=== PATIENT | female | born 1950 ===

== ENCOUNTER 2016-09-05 12:29 | Observation (INO) | payer SELFPAY ==
[~2016-09-05] VITALS: Ht 165.1 cm; Wt 72.0 kg
[2016-09-05] VITALS (9 sets, daily range): BP systolic 106–144; BP diastolic 51–71
--- NOTE | 2016-09-05 15:34 | ED NURSING NOTES ---
Clinical Report - Nurses [facility] [address] [place] [address] 09/05/2016 12:31 Patient: ARTURO ELIZABETH TRIAGE Triage time 13:05 Sep 05 2016. Acuity: LEVEL 3. Chief Complaint: PAINFUL URINATION and URGENCY and (suprapubic pressure). 13:05 09/05/16. SEPSIS SCREEN: Sepsis Screen: negative. Negative (no infection suspected/documented). --13:13 Anay Irving R.N. 13:07 09/05/16. BP: 120/48. HR: 76. RR: 18. O2 saturation: 99%. Temp: 98 F. Pain level now: 11/09. --13:13 Anay Irving R.N. Weight: 68 kg stated. Height/Length: 65 inches Per Patient. BMI: 25. --13:05 Anay Irving R.N. Medications None. --13:09 Anay Irving R.N. Medication/allergy information source: the patient. --13:13 Anay Irving R.N. Allergies Codeine. Latex. Morphine Sulfate. --13:09 Anay Irving R.N. History Arrived by private vehicle. Historian: patient. Accompanied by family. Primary physician (Supa). Onset. (2 weeks). ( intermittent symptoms,). No fever. 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 PAST MEDICAL HX: The patient is post-menopausal. SOCIAL HX: Never smoker. No alcohol use or drug use. No infectious disease exposure. ABUSE ASSESSMENT: No report of abuse. SELF HARM ASSESSMENT: A self harm assessment was performed. The patient answered "no" to the question "Have you recently felt down, depressed, or hopeless?", "Have you noticed less interest or pleasure in doing things?", "Do you have thoughts of harming or killing yourself?", "Are you here because you tried to hurt yourself?", "Have you ever tried to hurt yourself before today?", "Have you recently had thoughts about harming or killing others?" and "Do you have any dangerous items in your possession?". FALL RISK ASSESSMENT: Fall risk assessment completed. No fall risk identified. NUTRITIONAL RISK ASSESSMENT: The nutritional risk assessment revealed no deficiencies. FUNCTIONAL ASSESSMENT: Functional assessment: no impairments noted. LEARNING NEEDS ASSESSMENT: The learning needs assessment revealed no barriers. SKIN INTEGRITY ASSESSMENT: Skin integrity risk assessment completed. No skin integrity risk identified. --13:13 Anay Irving R.N. PROBLEMS: Chest Wall Pain. Diabetes Mellitus. --13:10 Anay Irving R.N. ADDITIONAL SURGERIES: Cholecystectomy. Left hip,femur, tib fib surgeries. --13:10 Anay Irving R.N. Interventions ID band on patient. --13:13 Anay Irving R.N. PHYSICAL ASSESSMENT 13:09/05/16. Ambulatory to room. GENERAL / NEURO / PSYCH: Alert. Oriented X 4. Appears in no acute distress. HEENT: Mucous membranes are pink. RESPIRATORY: Respirations not labored. Breath sounds within normal limits. CVS: Capillary refill less than 2 seconds. GI / : Abdomen soft and nontender. No abdominal tenderness or guarding. Pain with urination. She has had frequency of urination. Genital lesions noted. Vaginal bleeding. Vaginal discharge. No hematuria noted. Patient is not incontinent of urine. No Dennis catheter. SKIN: Skin is warm and dry. --13:45 Anay Irving R.N. 15:14 09/05/16. ( Conjunctiva is pale). --15:14 Anay Irving R.N. NURSING PROGRESS NOTES 13:09/05/16. The initial plan of care for this patient includes an assessment with efforts to address the presence of pain; impairment of the genitourinary system. This plan of care was discussed with the patient. Patient gowned. Reassurance given. Two patient identifiers checked. Call light placed in reach. Bed placed in lowest position. Brakes of bed on. Patient ready for evaluation. --13:44 Anay Irving R.N. 13:40 09/05/16. ( Sent patient to restroom to collect urine sample). --13:45 Anay Irving R.N. 13:50 09/05/16. Patient ID band checked for patient name and birthdate: patient confirmed. Instructions provided to collect clean catch urine and patient verbalized understanding. Clean catch urine collected with return of yellow-colored clear urine; sample sent to lab for urinalysis. Specimen labeled in the presence of the patient. --13:51 Anay Irving R.N. 13:53 09/05/16. Point of care testing: performed by [employer]. Glucose: 208 13:53. --13:53 Deandra Boyd 14:30 09/05/16. Patient ID band checked for patient name and birthdate: patient confirmed. Blood samples drawn from the left antecubital space with syringe 22g by nurse ; labeled in presence of the patient and sent to lab: [facility]. --14:34 Anay Irving R.N. 14:53 09/05/16. ( Critical H&H relayed to pt's nurseAnay.). --14:53 Kendy Bean R.N. 15:14 09/05/2016 Site #1 started via IV in the left forearm with an 20g angiocath, with aseptic technique and good blood return; one attempt. Saline lock flushed with 10 mL saline. --15:14 Anay Irving R.N. 15:14 09/05/16. gerontology aide, pulse oximeter and NIBP monitor placed on patient; communication arts lecturer- Lead II; monitor alarms on. --15:14 Anay Irving R.N. 15:14 09/05/16. BP: 137/83. HR: 62. RR: 16. O2 saturation: 96%. Pain level now 2/10. --15:14 Anay Irving R.N. 15:14 09/05/16. Overall patient status is the same- she states feels the same. ( Reports weakness). --15:14 Anay Irving R.N. 16:02 09/05/2016 Started bag #1 250 mL IV Fluids IV NS (Saline); at 20 mL/hr over 6 hour(s) via site #1 via IV pump. Allergies verified and confirmed 5 rights. IV patency established. IV site checked: no pain, redness, or swelling. IV flushed thoroughly pre- and post-medication administration. --16:02 Anay Irving R.N. 16:03 09/05/2016 Started 2 gm of Rocephin (CefTRIAXone Sodium) IVPB in bag #1 50 mL; at 400 mL/hr over 15 minute(s) via site #1; Allergies verified and confirmed 5 rights. IV patency established. IV site checked: no pain, redness, or swelling. IV flushed thoroughly pre- and post-medication administration. --16:03 Anay Irving R.N. 16:29 09/05/16. BLOOD PRODUCT STARTED: consent signed, ID band checked and blood product verified to order and patient's blood band by 2 staff members. #1 unit PRBC via IV pump. --16:39 Anay Irving R.N. 16:29 09/05/16. BP: 119/54. HR: 79. RR: 18. O2 saturation: 100%. Temp: 98.4 F. Pain level now: 0/10. --16:39 Anay Irving R.N. 16:45 09/05/16. The patient has had no adverse reaction. Overall patient status is the same- she states feels the same. --16:46 Anay Irving R.N. 16:45 09/05/16. BP: 130/54. HR: 70. RR: 18. O2 saturation: 99%. Temp: 98.3 F. Pain level now: 0/10. --16:46 Anay Irving R.N. DISPOSITION / DISCHARGE 16:18 09/05/2016 Rocephin IVPB Discontinued: completed. Total amount infused: 50 mL. --16:56 Anay Irving R.N. 16:56 09/05/2016 IV Fluids IV NS Continued: at the rate of 20 mL/hr. 200 mL remaining bag #1. IV patency established. IV site checked: no pain, redness, or swelling. IV flushed thoroughly. --16:56 Anay Irving R.N. 16:57 09/05/2016 Site #[address] upon admission; patent. Good blood return present; flushes easily. --16:57 Anay Irving R.N. 16:57 09/05/16. Condition at departure: improved and stable. The goals identified in the patient's plan of care were met. Report was given to a nurse via a phone call. Report included patient's care, treatment, medications, reviewed medication reconcilliation, and condition (including any recent changes or anticipated changes). All questions were answered. Report was acknowledged. (to MARVIN Allen). --16:57 Anay Irving R.N. 16:55 09/05/16. BP: 133/52. HR: 77. RR: 18. O2 saturation: 100%. Temp: 98.3 F. Pain level now: 0. 16:45 09/05/16. BP: 130/54. HR: 70. RR: 18. O2 saturation: 99%. Temp: 98.3 F. Pain level now: 0. 16:29 09/05/16. BP: 119/54. HR: 79. RR: 18. O2 saturation: 100%. Temp: 98.4 F. Pain level now: . 16:09 09/05/16. BP: 121/56. HR: 79. RR: 18. O2 saturation: 98%. Pain level now: 08/11. 15:14 09/05/16. BP: 137/83. HR: 62. RR: 16. O2 saturation: 96%. Pain level now 09/11. 13:07 09/05/16. BP: 120/48. HR: 76. RR: 18. O2 saturation: 99%. Temp: 98 F. Pain level now: 11/09. --16:57 Anay Irving R.N. 16:57 09/05/16. Patient's personal items include, belongings bag provided. , belongings not inventoried,; items were placed in belongings bag. --16:57 Anay Irving R.N. Locked/Released at 09/05/2016 16:58 by Anay Irving R.N.
--- NOTE | 2016-09-05 15:34 | ED CLINICAL REPORT ---
Clinical Report - Physicians/Mid Levels [facility] [address] [place] [address] 09/05/2016 12:31 Patient: ARTURO ELIZABETH Time Seen: 13:43 Sep 05 2016. Arrived- By private vehicle. Historian- patient. CPT: ER phys charges level 5 (#[id number]). HISTORY OF PRESENT ILLNESS Chief Complaint: DYSURIA. 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 ( intermittent symptoms,). and still present. The symptoms are described as moderate. Modifying factors- worsened by urination. Not relieved by anything. The patient has had mild, constant right-sided flank pain. No abnormal bleeding. She has had pain with urination and urgency of urination. The patient has had urinary frequency and hematuria. Not sexually active. Similar symptoms previously: As bad. Diagnosis: (UTI). Recent medical care: Not recently seen/assessed. REVIEW OF SYSTEMS No nausea, vomiting, diarrhea or black stools or stools. No headache, fever, chills or sore throat or throat. No cough, difficulty breathing, chest pain, skin rash or enlarged lymph nodes. No joint pain or pain, fever, epistaxis or abdominal pain. No bloody stools, hematuria, diabetic symptoms or easy bruising. The patient has had chills, fatigue, back pain, dizziness and weakness. Worried about diabetes and does not have medications or a Doctor. Has a history of diabetes. Right flank pain since developed dysuria. All systems otherwise negative, except as recorded above. PAST HISTORY ( Chest Wall Pain. Diabetes Mellitus. Cholecystectomy. Left hip,femur, tib fib surgeries). Medications: None. Allergies: Codeine. Latex. Morphine Sulfate. SOCIAL HISTORY Never smoker. No alcohol use or drug use. ADDITIONAL NOTES The nursing notes have been reviewed. PHYSICAL EXAM Vital Signs: 09/05/2016 13:07 BP: 120/48. HR: 76. RR: 18. O2 saturation: 99%. Temp: 98 F. Pain level now: 4/10. Appearance: Alert. No acute distress. Eyes: Pale conjunctivae. ENT: Pharynx normal. Neck: Neck supple. CVS: Heart sounds normal. Respiratory: No respiratory distress. Breath sounds normal. Chest nontender. Abdomen: Soft and nontender. Back: Normal external inspection. Skin: Skin warm. Normal skin color. No rash. Extremities: Extremities nontender. No lower extremity edema. Neuro: Oriented X 3. Mood/affect normal. No motor deficit. No sensory deficit. LABS, X-RAYS, AND EKG Laboratory Tests: UA-Culture if indicated: (CLAUS: 09/05/2016 13:50) ( [facility] [place] 09/05/2016 14:00) Final results Test Result Flag Units (Reference) URINE COLOR YELLOW URINE APPEARANCE CLEAR URINE GLUCOSE NEGATIVE (NEGATIVE) URINE BILIRUBIN NEGATIVE (NEGATIVE) URINE KETONE NEGATIVE (NEGATIVE) URINE SPECIFIC GRAVITY 1.010 (1.010-1.030) URINE PH 6.0 (5.0-8.0) URINE PROTEIN NEGATIVE (NEGATIVE) URINE UROBILINOGEN 2.0 EU/dL (0.2-1.0) The urobilinogen reagent area may react with interferingsubstances known to react with Manas's reagent such asp-aminosalicylic acid and sulfonamides. Atypical colorreactions may be obtained in the presence of highconcentrations of p-aminobenzoic acid. The absence ofurobilinogen cannot be determined with this test. URINE NITRITE NEGATIVE (NEGATIVE) URINE BLOOD NEGATIVE (NEGATIVE) URINE LEUK ESTERASE POSITIVE (NEGATIVE) URINE RBC 0-1 rbc/hpf (0-1) URINE WBC 3-5 wbc/hpf (0-1) URINE EPITHELIAL CELLS 0-1 EPI/hpf (0-5) URINE BACTERIA FEW (1+) (NONE SEEN) URINE COMMENT CULTURE INDICATED URINE CULTURES ARE SET-UP BASED ON THE FOLLOWING CRITERIA:POSITIVE NITRITEPOSITIVE LEUKOCYTE ESTERASEGREATER THAN 10 WHITE BLOOD CELLSMODERATE (2+) OR GREATER BACTERIA CBC w Diff: (CLAUS: 09/05/2016 14:30) ( [facility] [place] 09/05/2016 14:52) Final results Test Result Flag Units (Reference) WHITE BLOOD COUNT 5.2 K/uL (4.5-11.5) RED BLOOD COUNT 3.39 L M/uL (4.00-5.20) HEMOGLOBIN 4.7 *L gm/dL (12.0-16.0) CRITICAL RESULTS CALLEDCalled to LILIANA 09/05/16 1451Were 2 patient identifiers used? YWas the result read back? Y HEMATOCRIT 17.1 *L % (36.0-46.0) CRITICAL RESULTS CALLEDCalled to LILIANA 09/05/16 1451Were 2 patient identifiers used? YWas the result read back? Y MEAN CELL VOLUME 50 L fL (80-100) MEAN CORPUSCULAR HGB 14 L pg (26-34) MEAN CORPUSCULAR HGB CONC 27 L g/dL (31-37) RED CELL DISTRIBUTION WIDTH 22.6 H % (11.6-14.8) PLATELET COUNT 251 K/uL (150-400) LYMPH % 49.7 H % (25-40) MONO % 9.9 % (3-14) GRANULOCYTE % 40.4 L (53-90) CMP: (CLAUS: 09/05/2016 14:30) ( MsgRcvd 09/05/2016 15:10) Final results Test Result Flag Units (Reference) GLUCOSE 187 H mg/dL (70-110) BUN 14 mg/dL (7-18) CREATININE 0.6 mg/dL (0.6-1.3) Estimated GFR >60 mL/min Estimated GFR- >60 mL/min Note: Persistent reduction over 3 months in eGFR<60 mL/min/1.73 m2 defines CKD. Patients with eGFR values>=60 mL/min/1.73 m2 may also have CKD if evidence ofpersistent proteinuria. Additional information may be foundat [email or web address].org. SODIUM 140 mmol/L (136-145) POTASSIUM 4.2 mmol/L (3.5-5.1) CHLORIDE 106 mmol/L (98-107) CARBON DIOXIDE 26 mmol/L (21-32) CALCIUM 8.1 L mg/dL (8.5-10.1) TOTAL PROTEIN 6.2 L g/dL (6.4-8.2) ALBUMIN 2.9 L g/dL (3.3-5.0) BILIRUBIN, TOTAL 0.5 mg/dL (0.0-1.0) ALKALINE PHOSPHATASE 67 U/L (46-116) AST (SGOT) 8 L U/L (15-37) ALT (SGPT) 15 U/L (12-78) . PROGRESS AND PROCEDURES Course of Care: discussed with Dr. Carcamo on-call hospitalist. The patient will be admitted to the medical telemetry floor for blood transfusion and workup for anemia, UTI and diabetes. Heplock Type and cross for 4 units packed red blood cells ordered. 16:19 09/05/16. Pt initially refused to be admitted due to potentially missing the superbowl tomorrow. Pt agrees to admission Rocephin 2g IV. Patient/family counseled. Disposition orders written. Disposition: Admitted to Acute Care. CLINICAL IMPRESSION Severe anemia with secondary weakness and dizziness UTI. INSTRUCTIONS Warnings: Further evaluation is necessary. (Electronically signed by Srinivas Farrar MD 09/07/2016 18:23)
--- NOTE | 2016-09-05 15:34 | ED NURSING NOTES ---
Clinical Report - Nurses [facility] [address] [place] [address] 09/05/2016 12:31 Patient: ARTURO LEIZABETH TRIAGE Triage time 13:05 Sep 05 2016. Acuity: LEVEL 3. Chief Complaint: PAINFUL URINATION and URGENCY and (suprapubic pressure). 13:05 09/05/16. SEPSIS SCREEN: Sepsis Screen: negative. Negative (no infection suspected/documented). --13:13 Anay Irving R.N. 13:07 09/05/16. BP: 120/48. HR: 76. RR: 18. O2 saturation: 99%. Temp: 98 F. Pain level now: 11/09. --13:13 Anay Irving R.N. Weight: 68 kg stated. Height/Length: 65 inches Per Patient. BMI: 25. --13:05 Anay Irving R.N. Medications None. --13:09 Anay Irving R.N. Medication/allergy information source: the patient. --13:13 Anay Irving R.N. Allergies Codeine. Latex. Morphine Sulfate. --13:09 Anay Irving R.N. History Arrived by private vehicle. Historian: patient. Accompanied by family. Primary physician (Supa). Onset. (2 weeks). ( intermittent symptoms,). No fever. 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 PAST MEDICAL HX: The patient is post-menopausal. SOCIAL HX: Never smoker. No alcohol use or drug use. No infectious disease exposure. ABUSE ASSESSMENT: No report of abuse. SELF HARM ASSESSMENT: A self harm assessment was performed. The patient answered "no" to the question "Have you recently felt down, depressed, or hopeless?", "Have you noticed less interest or pleasure in doing things?", "Do you have thoughts of harming or killing yourself?", "Are you here because you tried to hurt yourself?", "Have you ever tried to hurt yourself before today?", "Have you recently had thoughts about harming or killing others?" and "Do you have any dangerous items in your possession?". FALL RISK ASSESSMENT: Fall risk assessment completed. No fall risk identified. NUTRITIONAL RISK ASSESSMENT: The nutritional risk assessment revealed no deficiencies. FUNCTIONAL ASSESSMENT: Functional assessment: no impairments noted. LEARNING NEEDS ASSESSMENT: The learning needs assessment revealed no barriers. SKIN INTEGRITY ASSESSMENT: Skin integrity risk assessment completed. No skin integrity risk identified. --13:13 Anay Irving R.N. PROBLEMS: Chest Wall Pain. Diabetes Mellitus. --13:10 Anay Irving R.N. ADDITIONAL SURGERIES: Cholecystectomy. Left hip,femur, tib fib surgeries. --13:10 Anay Irving R.N. Interventions ID band on patient. --13:13 Anay Irving R.N. PHYSICAL ASSESSMENT 13:09/05/16. Ambulatory to room. GENERAL / NEURO / PSYCH: Alert. Oriented X 4. Appears in no acute distress. HEENT: Mucous membranes are pink. RESPIRATORY: Respirations not labored. Breath sounds within normal limits. CVS: Capillary refill less than 2 seconds. GI / : Abdomen soft and nontender. No abdominal tenderness or guarding. Pain with urination. She has had frequency of urination. Genital lesions noted. Vaginal bleeding. Vaginal discharge. No hematuria noted. Patient is not incontinent of urine. No Dennis catheter. SKIN: Skin is warm and dry. --13:45 Anay Irving R.N. 15:14 09/05/16. ( Conjunctiva is pale). --15:14 Anay Irving R.N. NURSING PROGRESS NOTES 13:09/05/16. The initial plan of care for this patient includes an assessment with efforts to address the presence of pain; impairment of the genitourinary system. This plan of care was discussed with the patient. Patient gowned. Reassurance given. Two patient identifiers checked. Call light placed in reach. Bed placed in lowest position. Brakes of bed on. Patient ready for evaluation. --13:44 Anay Irving R.N. 13:40 09/05/16. ( Sent patient to restroom to collect urine sample). --13:45 Anay Irving R.N. 13:50 09/05/16. Patient ID band checked for patient name and birthdate: patient confirmed. Instructions provided to collect clean catch urine and patient verbalized understanding. Clean catch urine collected with return of yellow-colored clear urine; sample sent to lab for urinalysis. Specimen labeled in the presence of the patient. --13:51 Anay Irving R.N. 13:53 09/05/16. Point of care testing: performed by [employer]. Glucose: 208 13:53. --13:53 Deandra Boyd 14:30 09/05/16. Patient ID band checked for patient name and birthdate: patient confirmed. Blood samples drawn from the left antecubital space with syringe 22g by nurse ; labeled in presence of the patient and sent to lab: [facility]. --14:34 Anay Irving R.N. 14:53 09/05/16. ( Critical H&H relayed to pt's nurseAnay.). --14:53 Kendy Bean R.N. 15:14 09/05/2016 Site #1 started via IV in the left forearm with an 20g angiocath, with aseptic technique and good blood return; one attempt. Saline lock flushed with 10 mL saline. --15:14 Anay Irving R.N. 15:14 09/05/16. classroom monitor, pulse oximeter and NIBP monitor placed on patient; manager cardiac- Lead II; monitor alarms on. --15:14 Anay Irving R.N. 15:14 09/05/16. BP: 137/83. HR: 62. RR: 16. O2 saturation: 96%. Pain level now 2/10. --15:14 Anay Irving R.N. 15:14 09/05/16. Overall patient status is the same- she states feels the same. ( Reports weakness). --15:14 Anay Irving R.N. 16:02 09/05/2016 Started bag #1 250 mL IV Fluids IV NS (Saline); at 20 mL/hr over 6 hour(s) via site #1 via IV pump. Allergies verified and confirmed 5 rights. IV patency established. IV site checked: no pain, redness, or swelling. IV flushed thoroughly pre- and post-medication administration. --16:02 Anay Irving R.N. 16:03 09/05/2016 Started 2 gm of Rocephin (CefTRIAXone Sodium) IVPB in bag #1 50 mL; at 400 mL/hr over 15 minute(s) via site #1; Allergies verified and confirmed 5 rights. IV patency established. IV site checked: no pain, redness, or swelling. IV flushed thoroughly pre- and post-medication administration. --16:03 Anay Irving R.N. 16:29 09/05/16. BLOOD PRODUCT STARTED: consent signed, ID band checked and blood product verified to order and patient's blood band by 2 staff members. #1 unit PRBC via IV pump. --16:39 Anay Irving R.N. 16:29 09/05/16. BP: 119/54. HR: 79. RR: 18. O2 saturation: 100%. Temp: 98.4 F. Pain level now: 0/10. --16:39 Anay Irving R.N. 16:45 09/05/16. The patient has had no adverse reaction. Overall patient status is the same- she states feels the same. --16:46 Anay Irving R.N. 16:45 09/05/16. BP: 130/54. HR: 70. RR: 18. O2 saturation: 99%. Temp: 98.3 F. Pain level now: 0/10. --16:46 Anay Irving R.N. DISPOSITION / DISCHARGE 16:18 09/05/2016 Rocephin IVPB Discontinued: completed. Total amount infused: 50 mL. --16:56 Anay Irving R.N. 16:56 09/05/2016 IV Fluids IV NS Continued: at the rate of 20 mL/hr. 200 mL remaining bag #1. IV patency established. IV site checked: no pain, redness, or swelling. IV flushed thoroughly. --16:56 Anay Irving R.N. 16:57 09/05/2016 Site #[address] upon admission; patent. Good blood return present; flushes easily. --16:57 Anay Irving R.N. 16:57 09/05/16. Condition at departure: improved and stable. The goals identified in the patient's plan of care were met. Report was given to a nurse via a phone call. Report included patient's care, treatment, medications, reviewed medication reconcilliation, and condition (including any recent changes or anticipated changes). All questions were answered. Report was acknowledged. (to MARVIN Allen). --16:57 Anay Irving R.N. 16:55 09/05/16. BP: 133/52. HR: 77. RR: 18. O2 saturation: 100%. Temp: 98.3 F. Pain level now: 0. 16:45 09/05/16. BP: 130/54. HR: 70. RR: 18. O2 saturation: 99%. Temp: 98.3 F. Pain level now: 0. 16:29 09/05/16. BP: 119/54. HR: 79. RR: 18. O2 saturation: 100%. Temp: 98.4 F. Pain level now: . 16:09 09/05/16. BP: 121/56. HR: 79. RR: 18. O2 saturation: 98%. Pain level now: 08/11. 15:14 09/05/16. BP: 137/83. HR: 62. RR: 16. O2 saturation: 96%. Pain level now 09/11. 13:07 09/05/16. BP: 120/48. HR: 76. RR: 18. O2 saturation: 99%. Temp: 98 F. Pain level now: 11/09. --16:57 Anay Irving R.N. 16:57 09/05/16. Patient's personal items include, belongings bag provided. , belongings not inventoried,; items were placed in belongings bag. --16:57 Anay Irving R.N. Locked/Released at 09/05/2016 16:58 by Anay Irving R.N.
--- NOTE | 2016-09-05 15:34 | ED CLINICAL REPORT ---
Clinical Report - Physicians/Mid Levels [facility] [address] [place] [address] 09/05/2016 12:31 Patient: ARTURO ELIZABETH Time Seen: 13:43 Sep 05 2016. Arrived- By private vehicle. Historian- patient. CPT: ER phys charges level 5 (#[id number]). HISTORY OF PRESENT ILLNESS Chief Complaint: DYSURIA. This started about 2 weeks [employer]; Onset. (2 weeks). ( intermittent symptoms,). and still present. The symptoms are described as moderate. Modifying factors- worsened by urination. Not relieved by anything. The patient has had mild, constant right-sided flank pain. No abnormal bleeding. She has had pain with urination and urgency of urination. The patient has had urinary frequency and hematuria. Not sexually active. Similar symptoms previously: As bad. Diagnosis: (UTI). Recent medical care: Not recently seen/assessed. REVIEW OF SYSTEMS No nausea, vomiting, diarrhea or black stools or stools. No headache, fever, chills or sore throat or throat. No cough, difficulty breathing, chest pain, skin rash or enlarged lymph nodes. No joint pain or pain, fever, epistaxis or abdominal pain. No bloody stools, hematuria, diabetic symptoms or easy bruising. The patient has had chills, fatigue, back pain, dizziness and weakness. Worried about diabetes and does not have medications or a Doctor. Has a history of diabetes. Right flank pain since developed dysuria. All systems otherwise negative, except as recorded above. PAST HISTORY ( Chest Wall Pain. Diabetes Mellitus. Cholecystectomy. Left hip,femur, tib fib surgeries). Medications: None. Allergies: Codeine. Latex. Morphine Sulfate. SOCIAL HISTORY Never smoker. No alcohol use or drug use. ADDITIONAL NOTES The nursing notes have been reviewed. PHYSICAL EXAM Vital Signs: 09/05/2016 13:07 BP: 120/48. HR: 76. RR: 18. O2 saturation: 99%. Temp: 98 F. Pain level now: 4/10. Appearance: Alert. No acute distress. Eyes: Pale conjunctivae. ENT: Pharynx normal. Neck: Neck supple. CVS: Heart sounds normal. Respiratory: No respiratory distress. Breath sounds normal. Chest nontender. Abdomen: Soft and nontender. Back: Normal external inspection. Skin: Skin warm. Normal skin color. No rash. Extremities: Extremities nontender. No lower extremity edema. Neuro: Oriented X 3. Mood/affect normal. No motor deficit. No sensory deficit. LABS, X-RAYS, AND EKG Laboratory Tests: UA-Culture if indicated: (CLAUS: 09/05/2016 13:50) ( [facility] 09/05/2016 14:00) Final results Test Result Flag Units (Reference) URINE COLOR YELLOW URINE APPEARANCE CLEAR URINE GLUCOSE NEGATIVE (NEGATIVE) URINE BILIRUBIN NEGATIVE (NEGATIVE) URINE KETONE NEGATIVE (NEGATIVE) URINE SPECIFIC GRAVITY 1.010 (1.010-1.030) URINE PH 6.0 (5.0-8.0) URINE PROTEIN NEGATIVE (NEGATIVE) URINE UROBILINOGEN 2.0 EU/dL (0.2-1.0) The urobilinogen reagent area may react with interferingsubstances known to react with Manas's reagent such asp-aminosalicylic acid and sulfonamides. Atypical colorreactions may be obtained in the presence of highconcentrations of p-aminobenzoic acid. The absence ofurobilinogen cannot be determined with this test. URINE NITRITE NEGATIVE (NEGATIVE) URINE BLOOD NEGATIVE (NEGATIVE) URINE LEUK ESTERASE POSITIVE (NEGATIVE) URINE RBC 0-1 rbc/hpf (0-1) URINE WBC 3-5 wbc/hpf (0-1) URINE EPITHELIAL CELLS 0-1 EPI/hpf (0-5) URINE BACTERIA FEW (1+) (NONE SEEN) URINE COMMENT CULTURE INDICATED URINE CULTURES ARE SET-UP BASED ON THE FOLLOWING CRITERIA:POSITIVE NITRITEPOSITIVE LEUKOCYTE ESTERASEGREATER THAN 10 WHITE BLOOD CELLSMODERATE (2+) OR GREATER BACTERIA CBC w Diff: (CLAUS: 09/05/2016 14:30) ( [facility] 09/05/2016 14:52) Final results Test Result Flag Units (Reference) WHITE BLOOD COUNT 5.2 K/uL (4.5-11.5) RED BLOOD COUNT 3.39 L M/uL (4.00-5.20) HEMOGLOBIN 4.7 *L gm/dL (12.0-16.0) CRITICAL RESULTS CALLEDCalled to LILIANA 09/05/16 1451Were 2 patient identifiers used? YWas the result read back? Y HEMATOCRIT 17.1 *L % (36.0-46.0) CRITICAL RESULTS CALLEDCalled to LILIANA 09/05/16 1451Were 2 patient identifiers used? YWas the result read back? Y MEAN CELL VOLUME 50 L fL (80-100) MEAN CORPUSCULAR HGB 14 L pg (26-34) MEAN CORPUSCULAR HGB CONC 27 L g/dL (31-37) RED CELL DISTRIBUTION WIDTH 22.6 H % (11.6-14.8) PLATELET COUNT 251 K/uL (150-400) LYMPH % 49.7 H % (25-40) MONO % 9.9 % (3-14) GRANULOCYTE % 40.4 L (53-90) CMP: (CLAUS: 09/05/2016 14:30) ( MsgRcvd 09/05/2016 15:10) Final results Test Result Flag Units (Reference) GLUCOSE 187 H mg/dL (70-110) BUN 14 mg/dL (7-18) CREATININE 0.6 mg/dL (0.6-1.3) Estimated GFR >60 mL/min Estimated GFR- >60 mL/min Note: Persistent reduction over 3 months in eGFR<60 mL/min/1.73 m2 defines CKD. Patients with eGFR values>=60 mL/min/1.73 m2 may also have CKD if evidence ofpersistent proteinuria. Additional information may be foundat [email or web address].org. SODIUM 140 mmol/L (136-145) POTASSIUM 4.2 mmol/L (3.5-5.1) CHLORIDE 106 mmol/L (98-107) CARBON DIOXIDE 26 mmol/L (21-32) CALCIUM 8.1 L mg/dL (8.5-10.1) TOTAL PROTEIN 6.2 L g/dL (6.4-8.2) ALBUMIN 2.9 L g/dL (3.3-5.0) BILIRUBIN, TOTAL 0.5 mg/dL (0.0-1.0) ALKALINE PHOSPHATASE 67 U/L (46-116) AST (SGOT) 8 L U/L (15-37) ALT (SGPT) 15 U/L (12-78) . PROGRESS AND PROCEDURES Course of Care: discussed with Dr. Carcamo on-call hospitalist. The patient will be admitted to the medical telemetry floor for blood transfusion and workup for anemia, UTI and diabetes. Heplock Type and cross for 4 units packed red blood cells ordered. 16:19 09/05/16. Pt initially refused to be admitted due to potentially missing the superbowl tomorrow. Pt agrees to admission Rocephin 2g IV. Patient/family counseled. Disposition orders written. Disposition: Admitted to Acute Care. CLINICAL IMPRESSION Severe anemia with secondary weakness and dizziness UTI. INSTRUCTIONS Warnings: Further evaluation is necessary. (Electronically signed by Srinivas Farrar MD 09/07/2016 18:23)
--- NOTE | 2016-09-05 15:35 | ED ORDER SUMMARY ---
..... Patient: ARTURO ELIZABETH OrderSheet [facility] VisitID: [id number] [place] [address] 66y, F Registration Date/Time: 09/05/2016 ORDER SHEET Weight: 68.0 kg (stated) Allergies: Codeine, Latex, Morphine Sulfate GENERAL ORDERS: UA-Culture if indicated Urgent (13:46 09/05/2016 Rylee PARSONS) (Ack 13:48 OHdale) (Ack 13:48 TBergley) (13:56 TBergley) CBC w Diff Urgent (14:10 09/05/2016 Rylee PARSONS) (Ack 14:20 Alexander) (14:35 EInderbitzen R.N.) CMP Urgent (14:10 09/05/2016 Rylee PARSONS) (Ack 14:20 Alexander) (14:35 EInderbitzen R.N.) Type & Cross (anemia) (transfusion) Urgent (15:28 09/05/2016 Rylee PARSONS) (15:49 EInderbitzen R.N.) Transfuse PRBCs (4 untis PRBC) (16:11 09/05/2016 Rylee PARSONS) (Ack 16:22 EInderbitzen R.N.) (16:56 EInderbitzen R.N.) MEDICATION ORDERS: IV FLUIDS: IV NS : initial bolus none -, then TKO - for 6h (NOW); Routine (15:28 09/05/2016 Rylee PARSONS) (16:02 EInderbitzen R.N.) Rocephin IV 2 gm/50mL (NOW) (15:43 09/05/2016 Rylee PARSONS) (16:03 EInderbitzen R.N.) ORDER SHEET NOTES: [Electronically signed by Anay Irving R.N. (16:58 09/05/2016)] [Electronically signed by Srinivas Farrar MD (18:23 09/07/2016)] [Electronically locked/signed by Anay Irving R.N. (16:58 09/05/2016)]
--- NOTE | 2016-09-05 15:35 | ED ORDER SUMMARY ---
..... Patient: ARTURO ELIZABETH OrderSheet [facility] VisitID: [id number] [place] [address] 66y, F Registration Date/Time: 09/05/2016 ORDER SHEET Weight: 68.0 kg (stated) Allergies: Codeine, Latex, Morphine Sulfate GENERAL ORDERS: UA-Culture if indicated Urgent (13:46 09/05/2016 Rylee PARSONS) (Ack 13:48 OHdale) (Ack 13:48 TBergley) (13:56 TBergley) CBC w Diff Urgent (14:10 09/05/2016 Rylee PARSONS) (Ack 14:20 Alexander) (14:35 EInderbitzen R.N.) CMP Urgent (14:10 09/05/2016 Rylee PARSONS) (Ack 14:20 Alexander) (14:35 EInderbitzen R.N.) Type & Cross (anemia) (transfusion) Urgent (15:28 09/05/2016 Rylee PARSONS) (15:49 EInderbitzen R.N.) Transfuse PRBCs (4 untis PRBC) (16:11 09/05/2016 Rylee PARSONS) (Ack 16:22 EInderbitzen R.N.) (16:56 EInderbitzen R.N.) MEDICATION ORDERS: IV FLUIDS: IV NS : initial bolus none -, then TKO - for 6h (NOW); Routine (15:28 09/05/2016 Rylee PARSONS) (16:02 EInderbitzen R.N.) Rocephin IV 2 gm/50mL (NOW) (15:43 09/05/2016 Rylee PARSONS) (16:03 EInderbitzen R.N.) ORDER SHEET NOTES: [Electronically signed by Anay Irving R.N. (16:58 09/05/2016)] [Electronically signed by Srinivas Farrar MD (18:23 09/07/2016)] [Electronically locked/signed by Anay Irving R.N. (16:58 09/05/2016)]
--- NOTE | 2016-09-05 16:47 | History & Physical Report ---
Admission Admit Date 09/05/16 Information Source Information Source: Self, ED Record History Chief Complaint Weakness History of Present Illness 66yoF w/ hx of 2 polyps on colonoscopy 1 year ago, NIDDM, who presents with 1 week of dysuria and suprapubic pain, as well as increasing weakness and lightheadedness during this time. She denies flank pain, fevers, nausea/ vomiting. In the ED, she was found to have a hgb of 4.7, and patient denies history of anemia. She states that one of the polyps one year ago was noted to be "fungating" and cancerous. She had seen a colorectal surgeon, who had recommended subtotal colectomy. However, the patient was scared about doing this, and did not follow up. She has not noticed any black or bloody stools, and denies abdominal pain, CP, or SOB. She feels lightheaded with exertion, relieved with rest. Patient History 1. Colon polyps 2. Diabetes type 2, uncontrolled Social History Denies tobacco/alcohol/drug use. Medications and Allergies Medications Current Medications Sig/Robe Start time Last Medication Dose Route Stop Time Status Admin Ceftriaxone Sodium/ 50 ML DAILY 09/06 0900 UNV Dextrose IV Insulin Human Lispro See Dose ACHS 09/05 2100 UNi Insts (1) SC Pantoprazole Sodium 40 MG BID 09/05 2100 UNV IV Acetaminophen 650 MG Q6H PRN 09/05 1630 UNV PO Ondansetron HCl 4 MG Q6H PRN 09/05 1630 UNV IV Dose Instructions: (1)Insulin Human Lispro: LOW DOSE: ACCUCHECK AND SLIDING SCALE >>To change sliding scale DISCONTINUE this order and enter a NEW order. Thanks< Allergies Coded Allergies: NKA (09/05/16) Review of Systems Other As per HPI, rest of 10-point ROS unremarkable. Physical Exam General Appearance Alert, Oriented X3, Cooperative, No acute distress HEENT Atraumatic, PERRLA, EOMI, Moist mucous membranes, no icterus Lungs Clear to auscultation Neck Supple, No JVD Cardiovascular Regular rate and rhythm, Normal S1 and S2, No murmurs, gallops, rubs Abdomen Normal bowel sounds, Soft, No guarding, No rebound, suprapubic tenderness, no cva tenderness Rectal Brown stool Extremities No edema Skin No Rashes Neurological Sensation intact, Cranial nerves intact, Strength 5/5 x4 ext's, No lateralizing signs Psych/Mental Status Mental status normal LAB Results Laboratory Tests 09/05 09/05 1430 1350 Chemistry Plasma Sodium (136 - 145 mmol/L) 140 Plasma Potassium (3.5 - 5.1 mmol/L) 4.2 Plasma Chloride (98 - 107 mmol/L) 106 CO2 (Enzymatic) (21 - 32 mmol/L) 26 BUN (7 - 18 mg/dL) 14 Creatinine (0.6 - 1.3 mg/dL) 0.6 Est GFR ( Amer) (mL/min) >60 Est GFR (Non-Af Amer) (mL/min) >60 Glucose (70 - 110 mg/dL) 187 Plasma Calcium (8.5 - 10.1 mg/dL) 8.1 Total Bilirubin (0.0 - 1.0 mg/dL) 0.5 AST (15 - 37 U/L) 8 ALT (12 - 78 U/L) 15 Alkaline Phosphatase (46 - 116 U/L) 67 Total Protein (6.4 - 8.2 g/dL) 6.2 Albumin (3.3 - 5.0 g/dL) 2.9 Hematology WBC (4.5 - 11.5 K/uL) 5.2 RBC (4.00 - 5.20 M/uL) 3.39 Hgb (12.0 - 16.0 gm/dL) 4.7 Hct (36.0 - 46.0 %) 17.1 MCV (80 - 100 fL) 50 MCH (26 - 34 pg) 14 RDW (11.6 - 14.8 %) 22.6 Gran % (53 - 90) 40.4 Lymph % (Auto) (25 - 40 %) 49.7 [place] % (Auto) (3 - 14 %) 9.9 Plt Count, EDTA (150 - 400 K/uL) 251 RBC Morphology (4175 A) ACANTHOCYTOSIS 1+ PUBS MCHC (31 - 37 g/dL) 27 Urines Urine Color YELLOW Urine Appearance CLEAR Urine pH (5.0 - 8.0) 6.0 Ur Specific Sasser (1.010 - 1.030) 1.010 Urine Protein (NEGATIVE) NEGATIVE Urine Ketones (NEGATIVE) NEGATIVE Urine Blood (NEGATIVE) NEGATIVE Urine Nitrite (NEGATIVE) NEGATIVE Urine Bilirubin (NEGATIVE) NEGATIVE Urine Urobilinogen (0.2 - 1.0 EU/dL) 2.0 Ur Leukocyte Esterase (NEGATIVE) POSITIVE Urine RBC (0 - 1 rbc/hpf) 0-1 Urine WBC (0 - 1 wbc/hpf) 3-5 Ur Epithelial Cells (0 - 5 EPI/hpf) 0-1 Urine Bacteria (NONE SEEN) FEW (1+) Urine Glucose (NEGATIVE) NEGATIVE Urine Comment CULTURE INDICATED Microbiology Date/Time Procedure - Status Source Growth 09/05 1350 Urine Culture - RECD URINE CC 09/05 UNK Blood Culture - ORD BLOOD 09/05 UNK Blood Culture - ORD BLOOD Assessment and Plan Problem List 1. Acute blood loss anemia Plan My suspicion is that this is due to a slow bleed, possibly from her ?cancerous polyp. Her MCV is only 50, suggesting chronic bleed or iron deficiency, and she is hemodynamically stable with minimal symptoms. Will round out workup with iron studies, b12/folic, retic, ldh, hapto, and FOBT. Patient type/crossed in ED, and plan to transfuse 4 units PRBCs. Will repeat CBC in AM. Original plan was to consult general surgery, as she needs a repeat colonoscopy due to her risk for cancer as a cause, but patient DOES NOT want to have this done at this time. She wants to be transfused, and discharged prior to the Super Bowl tomorrow, and promises to follow up afterwards. Despite me, the ER physician, and the ER nurse speaking with the patient about the risks of leaving without a thorough workup (including CVA, RI, and even ), she remains adamant that she wants to leave tomorrow AM. In the meantime, we will monitor her closely on telemetry, watch for transfusion reactions, and will place her on IV protonix. 2. Colon polyps Plan Patient unsure where she had the colonoscopy done, or who the doctors were, so unable to obtain records. 3. Diabetes type 2, uncontrolled Plan Not on medications. Will place on SSI while here. Patient states that she is normally diet-controlled. Will check A1c in AM. 4. Acute cystitis Plan Will continue on ceftriaxone. Follow up cultures. FEN: DM PPx: SCDs due to concern for bleed, PPI Code: FULL, per discussion w/ patient in ED Dispo: Obs LOC. Normally would be inpatient, but patient refusing to stay more than 1 midnight in the hospital. E&M Codes Admission: Obsv-Comp/High/[id number]
--- NOTE | 2016-09-05 17:44 | Provider's Discharge Care Plan ---
Problem, Goal, Plan Problem List 1. Acute blood loss anemia Instructions: Follow up as directed, You were given 4 units of blood during this hospital stay. It is EXTREMELY important that you follow up with your doctor for a repeat colonoscopy to evaluate those polyps!! 2. Colon polyps Instructions: You absolutely need to follow up with your finance admin or surgeon for a repeat colonoscopy!! 3. Diabetes type 2, uncontrolled Instructions: Please establish care with a primary care physician for continued monitoring of your blood sugars. Continue to avoid sugary or high- carbohydrate foods. 4. Acute cystitis Instructions: Take meds as directed
--- NOTE | 2016-09-05 17:44 | Provider's Discharge Care Plan ---
Problem, Goal, Plan Problem List 1. Acute blood loss anemia Instructions: Follow up as directed, You were given 4 units of blood during this hospital stay. It is EXTREMELY important that you follow up with your doctor for a repeat colonoscopy to evaluate those polyps!! 2. Colon polyps Instructions: You absolutely need to follow up with your cash applications associate or surgeon for a repeat colonoscopy!! 3. Diabetes type 2, uncontrolled Instructions: Please establish care with a primary care physician for continued monitoring of your blood sugars. Continue to avoid sugary or high- carbohydrate foods. 4. Acute cystitis Instructions: Take meds as directed
[2016-09-05] MEDS ORDERED: CIPROFLOXACIN250 MG PO (17:47)
[2016-09-06] VITALS (10 sets, daily range): BP systolic 126–162; BP diastolic 58–74
--- NOTE | 2016-09-06 08:02 | Discharge Summary ---
Discharge Summary Report Admit Date 09/05/16 Discharge Date 09/06/16 Admission Diagnosis Acute blood loss anemia Likely slow lower GI bleed Colonic polyps on colonoscopy 1 year ago Uncontrolled DM type 2 Acute cystitis Discharge Diagnosis Acute blood loss anemia Likely slow LGIB Colonic polyps on colonoscopy 1 year ago Uncontrolled DM, type II Acute cystitis Brief History per H&P: 66yoF w/ hx of 2 polyps on colonoscopy 1 year ago, NIDDM, who presents with 1 week of dysuria and suprapubic pain, as well as increasing weakness and lightheadedness during this time. She denies flank pain, fevers, nausea/ vomiting. In the ED, she was found to have a hgb of 4.7, and patient denies history of anemia. She states that one of the polyps one year ago was noted to be "fungating" and cancerous. She had seen a colorectal surgeon, who had recommended subtotal colectomy. However, the patient was scared about doing this, and did not follow up. She has not noticed any black or bloody stools, and denies abdominal pain, CP, or SOB. She feels lightheaded with exertion, relieved with rest. Hospital Course Patient was initially quite resistant to admission, as she wanted to be at home for the [facility]. However, after long discussions with me, the ER physician, and the ER nurse, she was agreeable for admission JUST for transfusion of PRBCs. She received 4 units overnight, with improvement in her symptoms and hemoglobin. She did not want to pursue colonoscopy yet, despite my concerns about evaluating the colonic polyps that she said were cancerous a year ago. She also refused any treatment for her diabetes, stating she is allergic to all medications for this and she is afraid that she is allergic to insulin. I again voiced my concerns about her leaving, but she stated that she would follow up either here or with her previous doctor for repeat colonoscopy. Also of note, she was diagnosed with a UTI, and was given 2 doses of ceftriaxone in the hospital. She was given a prescription for ciprofloxacin, to complete a 3 day total course. General Appearance Alert, Oriented X3, No acute distress HEENT Atraumatic, PERRLA, EOMI, Mucous membran moist/pink Lungs Clear to auscultation Cardiovascular Regular Rate, Normal S1, Normal S2, No murmurs Abdomen Normal bowel sounds, Soft, No tenderness Skin No Rashes, No Significant Lesions Neurological Strength at 5/5 X4 ext, Sensation intact, Cranial nerves 3-12 NL Psych/Mental Status Mental status NL Lab/Imaging Laboratory Tests 09/06 09/06 09/05 09/05 09/05 0705 0705 1950 1943 1430 Chemistry Plasma Sodium (136 - 145 mmol/L) 139 Plasma Potassium (3.5 - 5.1 mmol/L) 3.9 Plasma Chloride (98 - 107 mmol/L) 105 CO2 (Enzymatic) (21 - 32 mmol/L) 25 BUN (7 - 18 mg/dL) 9 Creatinine (0.6 - 1.3 mg/dL) 0.6 Est GFR ( Amer) (mL/min) >60 Est GFR (Non-Af Amer) (mL/min) >60 Glucose (70 - 110 mg/dL) 207 Hemoglobin A1c % (4.5 - 6.2 %) 6.8 Plasma Calcium (8.5 - 10.1 mg/dL) 8.0 Iron (35 - 150 ug/dL) 8 Hematology WBC (4.5 - 11.5 K/uL) 5.5 RBC (4.00 - 5.20 M/uL) 4.78 Hgb (12.0 - 16.0 gm/dL) 9.5 Hct (36.0 - 46.0 %) 31.7 MCV (80 - 100 fL) 66 MCH (26 - 34 pg) 20 RDW (11.6 - 14.8 %) 38.3 Neut % (Auto) (50 - 75 %) Pending Lymph % (Auto) (25 - 40 %) Pending Lewis % (Auto) (3 - 14 %) Pending Reticulocyte % (Auto) (0.5 - 1.5 %) 1.7 Reticulocyte # (0.02 - 0.08 M/uL) 0.0708 Band Neutrophils % (0 - 8 %) Pending Plt Count, EDTA (150 - 400 K/uL) 175 PUBS MCHC (31 - 37 g/dL) 30 Haptoglobin Pending 09/05 09/05 1430 1430 Chemistry Plasma Sodium (136 - 145 mmol/L) 140 Plasma Potassium (3.5 - 5.1 mmol/L) 4.2 Plasma Chloride (98 - 107 mmol/L) 106 CO2 (Enzymatic) (21 - 32 mmol/L) 26 BUN (7 - 18 mg/dL) 14 Creatinine (0.6 - 1.3 mg/dL) 0.6 Est GFR ( Amer) (mL/min) >60 Est GFR (Non-Af Amer) (mL/min) >60 Glucose (70 - 110 mg/dL) 187 Plasma Calcium (8.5 - 10.1 mg/dL) 8.1 Ferritin (3 - 105 ng/mL) 2 Total Bilirubin (0.0 - 1.0 mg/dL) 0.5 AST (15 - 37 U/L) 8 ALT (12 - 78 U/L) 15 Alkaline Phosphatase (46 - 116 U/L) 67 Lactate Dehydrogenase (117 - 222 U/L) 150 Total Protein (6.4 - 8.2 g/dL) 6.2 Albumin (3.3 - 5.0 g/dL) 2.9 Vitamin B12 (211 - 946 pg/mL) 832 Folate (>3.0 ng/mL) 18.2 Hematology WBC (4.5 - 11.5 K/uL) 5.2 RBC (4.00 - 5.20 M/uL) 3.39 Hgb (12.0 - 16.0 gm/dL) 4.7 Hct (36.0 - 46.0 %) 17.1 MCV (80 - 100 fL) 50 MCH (26 - 34 pg) 14 RDW (11.6 - 14.8 %) 22.6 Gran % (53 - 90) 40.4 Lymph % (Auto) (25 - 40 %) 49.7 Lewis % (Auto) (3 - 14 %) 9.9 Plt Count, EDTA (150 - 400 K/uL) 251 RBC Morphology (4175 A) ACANTHOCYTOSIS 1+ PUBS MCHC (31 - 37 g/dL) 27 09/05 1350 Urines Urine Color YELLOW Urine Appearance CLEAR Urine pH (5.0 - 8.0) 6.0 Ur Specific Wake (1.010 - 1.030) 1.010 Urine Protein (NEGATIVE) NEGATIVE Urine Ketones (NEGATIVE) NEGATIVE Urine Blood (NEGATIVE) NEGATIVE Urine Nitrite (NEGATIVE) NEGATIVE Urine Bilirubin (NEGATIVE) NEGATIVE Urine Urobilinogen (0.2 - 1.0 EU/dL) 2.0 Ur Leukocyte Esterase (NEGATIVE) POSITIVE Urine RBC (0 - 1 rbc/hpf) 0-1 Urine WBC (0 - 1 wbc/hpf) 3-5 Ur Epithelial Cells (0 - 5 EPI/hpf) 0-1 Urine Bacteria (NONE SEEN) FEW (1+) Urine Glucose (NEGATIVE) NEGATIVE Urine Comment CULTURE INDICATED Microbiology Date/Time Procedure - Status Source Growth 09/05 1949 Blood Culture - RECD BLOOD 09/05 1942 Blood Culture - RECD BLOOD 09/05 1349 Urine Culture - RECD URINE CC Discharge Instructions/Meds Patient was encouraged multiple times to return or see her doctor about undergoing colonoscopy to follow up those polyps. She was also encouraged to establish care with a PCP for management of her diabetes. She was instructed to return the ER if she developed any bleeding, chest pains, shortness of breath, or syncope. E&M Codes Discharge: Observation - All/[id number]
--- NOTE | 2016-09-07 18:23 | ED MED RECONCILIATION SUMMARY ---
Patient: ARTURO ELIZABETH Medication Reconciliation Report [facility] VisitID: [id number] [address] [place] [address] 66y, F Registration Date/Time: 09/05/2016 Weight: 68.0 kg Height/Length: 65 in. BMI: 25.0 ALLERGIES: Codeine, Latex, Morphine Sulfate The patient's Home Medications are listed below: NONE. The source(s) of the original Home Medication information: patient The following Medications were given to the patient in the Emergency Department: IV NS IV Fluids bolus 0, then 20 mL/hr, administered: 09/05/2016 4:02:00 PM Rocephin [IVPB] IVPB bolus 0, then 2 gm 400 mL/hr, administered: 09/05/2016 4:03:00 PM The following Medications were prescribed to the patient: None.
--- NOTE | 2016-09-07 18:23 | ED DISCHARGE INSTRUCTIONS ---
Patient: ARTURO ELIZABETH General Instructions [facility] VisitID: [id number] [address] [place] [address] 66y, F Registration Date/Time: 09/05/2016 Severe anemia with secondary weakness and dizziness UTI. INSTRUCTIONS Warnings: Further evaluation is necessary. (Electronically signed by Srinivas Farrar MD 09/07/2016 18:23)
--- NOTE | 2016-09-07 18:23 | ED DISCHARGE INSTRUCTIONS ---
Patient: ARTURO ELIZABETH General Instructions [facility] VisitID: [id number] [address] [place] [place] [address] 66y, F Registration Date/Time: 09/05/2016 Severe anemia with secondary weakness and dizziness UTI. INSTRUCTIONS Warnings: Further evaluation is necessary. (Electronically signed by Srinivas Farrar MD 09/07/2016 18:23)
--- NOTE | 2016-09-07 18:23 | ED MED RECONCILIATION SUMMARY ---
Patient: ARTURO ELIZABETH Medication Reconciliation Report [facility] VisitID: [id number] [address] [place] [address] 66y, F Registration Date/Time: 09/05/2016 Weight: 68.0 kg Height/Length: 65 in. BMI: 25.0 ALLERGIES: Codeine, Latex, Morphine Sulfate The patient's Home Medications are listed below: NONE. The source(s) of the original Home Medication information: patient The following Medications were given to the patient in the Emergency Department: IV NS IV Fluids bolus 0, then 20 mL/hr, administered: 09/05/2016 4:02:00 PM Rocephin [IVPB] IVPB bolus 0, then 2 gm 400 mL/hr, administered: 09/05/2016 4:03:00 PM The following Medications were prescribed to the patient: None.
--- NOTE | 2016-09-07 18:23 | ED MAR SUMMARY ---
..... Medication Administration Record [facility] [address] [place] [address] Patient: ARTURO ELIZABETH Visit ID: [id number] 66y, F Weight: 68.0 kg Height/Length: 65 in BMI: 25 ALLERGIES: Codeine, Latex, Morphine Sulfate Start 16:02 09/05/2016 Anay Irving R.N., Continued Upon Disposition 16:56 09/05/2016 Anay Irving R.N. Medication Administered: IV NS (SALINE), Dose: IV Fluids over 6 hour(s), Rate: 20 mL/hr, Dispensed: 250 mL bag, Site: #1 left forearm. Medication Ordered: IV NS : initial bolus none -, then TKO - for 6h (NOW); Routine. Start 16:03 09/05/2016 Anay Irving R.N., Stop 16:18 09/05/2016 Anay Irving R.N. Medication Administered: ROCEPHIN [IVPB] (CEFTRIAXONE SODIUM), Dose: 2 gm IVPB over 15 minute(s), Rate: 400 mL/hr, Dispensed: 50 mL bag, Site: #1 left forearm. Medication Ordered: Rocephin IV 2 gm/50mL (NOW).
--- NOTE | 2016-09-07 18:23 | ED MAR SUMMARY ---
..... Medication Administration Record [facility] [address] [place] [address] Patient: ARTURO ELIZABETH Visit ID: [id number] 66y, F Weight: 68.0 kg Height/Length: 65 in BMI: 25 ALLERGIES: Codeine, Latex, Morphine Sulfate Start 16:02 09/05/2016 Anay Irving R.N., Continued Upon Disposition 16:56 09/05/2016 Anay Irving R.N. Medication Administered: IV NS (SALINE), Dose: IV Fluids over 6 hour(s), Rate: 20 mL/hr, Dispensed: 250 mL bag, Site: #1 left forearm. Medication Ordered: IV NS : initial bolus none -, then TKO - for 6h (NOW); Routine. Start 16:03 09/05/2016 Anay Irving R.N., Stop 16:18 09/05/2016 Anay Irving R.N. Medication Administered: ROCEPHIN [IVPB] (CEFTRIAXONE SODIUM), Dose: 2 gm IVPB over 15 minute(s), Rate: 400 mL/hr, Dispensed: 50 mL bag, Site: #1 left forearm. Medication Ordered: Rocephin IV 2 gm/50mL (NOW).
== END 2016-09-06 12:30 | disposition home or self-care (01) ==
LOC: ED SRH 12:29 → TRANS SRH 15:52 → ACUTE2 SRH 17:09
PROVIDERS: ADMIT Internal Medicine
PROC: 30233N1 Transfusion of Nonautologous Red Blood Cells into Peripheral Vein, Percutaneous Approach (ICD-10-PCS; principal; 2016-09-05)
PROC: 30233N1 Transfusion of Nonautologous Red Blood Cells into Peripheral Vein, Percutaneous Approach (ICD-10-PCS; 2016-09-06)
DX: D62 Acute posthemorrhagic anemia (principal); K92.2 Gastrointestinal hemorrhage, unspecified; Z86.010 Personal history of colon polyps; N30.00 Acute cystitis without hematuria
CPT/HCPCS: 29230; 90001; 90004; 90047; 90065; 90074; 90098; 90100; 90155; 90469; 90627; 91004; 91282; 91286; 91504; 91505; 91544; 91643; 92668; 92680; 95059; 95140; 99098

== ENCOUNTER 2016-11-05 11:13 | Outpatient (CLI) | payer SELFPAY ==
[~2016-11-05 11:13] MED LIST: CIPROFLOXACIN250 MG PO
--- NOTE | 2016-11-05 12:57 | DIAGNOSTIC IMAGING REPORT ---
PROCEDURE: CT THORAX ABD PELVIS W/CONT INDICATION: MALIGNANT NEOPLASM OF COLON TECHNIQUE: 125 ml of Isovue 300 injected intravenously and axial images were obtained of the entire thorax, abdomen, and pelvis with sagittal and coronal reformations. COMPARISON: None. FINDINGS: THORAX: Normal thyroid gland. Non- enlarged, calcified bilateral hilar and mediastinal lymph nodes. No bulky adenopathy. No anterior or posterior masses. Normal esophagus without hiatal hernia. Chambers of the heart are normal size. No pericardial effusions. The lungs are clear. The airway is patent and branches normally. No pleural effusions. No suspicious osseous lesions. ABDOMEN: For length of about 7.5 cm in the distal aspect of the ascending colon, there is abnormal circumferential mural thickening, diffuse enhancement and luminal narrowing. There is fairly extensive pericolonic inflammation and ill definition of the serosal surface. There are low-density nodules adjacent to the medial aspect of this portion of the colon which extend through the serosal surface into the adjacent mesocolon. No extraluminal gas. No proximal obstruction. There are multiple abnormal mesenteric lymph nodes and a few prominent right common iliac chain lymph nodes and aortocaval lymph nodes. Gallbladder is surgically absent. Multiple punctate calcifications are present in the spleen. The liver, adrenal glands, spleen, pancreas, kidneys, retroperitoneal vasculature and ureters appear normal. No unusual calcifications. The stomach and other bowel loops appear normal. No free fluid or free air. PELVIS: Dystrophic vascular calcifications are associated with the uterus. There is a right adnexal mass sharing a broad-based connection with the uterus measuring 2.9 cm, and another partially exophytic left adnexal nodule measuring about 13 mm. Normal ovarian tissue is present bilaterally. Normal appendix, and the pelvic small bowel loops. Normal partially filled urinary bladder, pelvic vessels, and lymph nodes. No suspicious adenopathy, soft tissue mass, or free pelvic fluid. Evidence of prior, healed right inferior pubic ramus fracture. Multiple left hip pins are present. Degenerative facet arthropathy in the lower lumbar spine. IMPRESSION: 1. Findings of neoplastic change in the distal aspect of the ascending colon with likely disruption of the serosal surface and tumor extension into the mesocolon. Suspicious mesenteric and retroperitoneal lymph nodes are also seen. 2. No evidence of hepatic metastatic disease. 3. Probable fibroid uterus, but in the setting of neoplasm, metastases are not entirely excluded. Pelvic ultrasound is recommended. 4. Status post cholecystectomy. 5. Evidence of healed granulomatous disease (calcified mediastinal and hilar lymph nodes, and splenic granulomas). 6. Discussed with Dr. Barger. All CT scans at this facility use dose modulation, iterative reconstruction, and/or weight-based dosing when appropriate to reduce radiation dose to as low as reasonably achievable.
== END 2016-11-05 23:00 | disposition home or self-care (01) ==
LOC: CT SRH 11:13
DX: C18.9 Malignant neoplasm of colon, unspecified (principal); R93.5 Abnormal findings on diagnostic imaging of other abdominal regions, including retroperitoneum